=== PATIENT | male | born 1960 | race Caucasian/White ===

== ENCOUNTER 2018-03-26 11:28 | Day surgery (SDC) | payer OTHER, SELFPAY ==
--- NOTE | 2018-03-26 11:27 | RAD_ITS ---
STUDY: X-RAY - ABDOMEN/PELVIS REASON FOR EXAM: Male, 57 years old. Right-sided kidney stone, preop TECHNIQUE: Two AP supine views of the abdomen and pelvis. COMPARISON: None. FINDINGS: Normal visualized lung bases. There is an unremarkable bowel gas pattern. There is no demonstrated free abdominal air. The visualized liver, spleen and kidneys are grossly normal in size and morphology. Ossific density in the region of the right renal shadow measuring 5.2 mm. Tiny 3 mm stone in the lower pole of the left kidney. Normal soft tissue structures. Normal visualized osseous structures. RAD/Abdomen Single View IMPRESSION: As above Electronically Signed: Michael Donis DO at 12:47 EDT Tel , Service support ,
[2018-03-26 12:28] VITALS: BP 130/87; PULSE 71; RESP 12; TEMP 37.1; O2SAT 96; BMI 31.6
[2018-03-26] MEDS: Cefazolin 2 GM in 0.9% Normal Saline 100 ML IV (14:23)
--- NOTE | 2018-03-26 14:27 | DCINST_ITS ---
Discharge Diet: Light diet - advance as tolerated Discharge Activity: Return to Normal Activity Instructions: Shock Wave Lithotripsy Allergies/Adverse Reactions: Allergies penicillin V Allergy (Severe, Verified 03/26/18 12:25) RASH Medications to take at Discharge aspirin 81 mg tablet,delayed release 81 mg PO DAILY 03/23/18 hydrocodone 7.5 mg-acetaminophen 325 mg tablet 1 tab PO Q6H PRN #60 tab 03/23/18 lisinopril 20 mg tablet 20 mg PO DAILY #90 tab 03/23/18 multivitamin,bp-hiai-iamtwkki tablet 1 tab PO DAILY 03/23/18 omega-3 fatty acids 1,000 mg capsule 1,000 mg PO DAILY 03/23/18 promethazine 12.5 mg tablet 12.5 mg PO Q4H PRN #60 tab 03/23/18 tamsulosin 0.4 mg capsule 0.4 mg PO DAILY #30 cap 03/23/18 Primary Care Physician: Maribell Pulido NP-C [Primary Care Provider] - Test Results: Test results from this visit will be discussed in further detail at your follow- up appointment, if applicable. Please Follow Up With: Eddie Gonzalez MD When: in 2 weeks, please call to make an appointment.
--- NOTE | 2018-03-26 15:24 | PCM.OPRPT ---
Report of Operation Date of Procedure: 03/26/18 Pre-Operative Diagnosis: Right proximal ureteral calculi Post-Operative Diagnosis: Same Surgery/Procedure Performed:: Right extracorporeal shockwave lithotripsy Description of Surgical Findings:: 57-year-old male taken back to the operating room for shockwave lithotripsy, after induction of anesthesia, he was placed supine on the table and we localize the stone in the proximal right ureter using triangulation technique in the F2 focal point of the lithotripter machine. We then started shockwave lithotripsy stone then moved up into the kidney we then repositioned the stone in the F2 focal point in the kidney and continued with treatment of the stone at the end of the treatment cycle we delivered 3000 shockwaves at a rate of 90 power up to 7. The stone fragment appeared to break up successfully, no stent was placed patient's anesthetic is currently being reversed plan to see him back in a few weeks with an x-ray. Type of Anesthesia:: General Drains: none - Admit VTE Documentation VTE Present on Admission: No VTE Mechan Device Prophylaxis: SCD's VTE Pharm Prophylaxis ordered?: No Reason prophylaxis not ordered:: Treatment Not Indicated
[2018-03-26 15:41] VITALS: BP 127/80; BP 130/87; PULSE 79; RESP 16; TEMP 36.5; O2SAT 92
[2018-03-26 15:50] VITALS: BP 116/75; BP 130/87; PULSE 71; RESP 16; O2SAT 100
[2018-03-26] MEDS: Ketorolac 15 MG/ML Vial IV (15:54)
[2018-03-26 16:00] VITALS: BP 122/78; BP 130/87; RESP 16; O2SAT 100
[2018-03-26 16:15] VITALS: BP 128/77; BP 130/87; PULSE 70; RESP 16; TEMP 36.8; O2SAT 98
[2018-03-26 16:34] VITALS: BP 130/87
== END 2018-03-26 16:43 | disposition home or self-care (01) ==
LOC: SDC 11:31 → AC 11:34 → SDC 03-29 06:31
PROVIDERS: Family Provider Nurse Practitioner; PCP Nurse Practitioner; Referring Provider Urology; Visit Provider Urology
PROC: (CPT 50590; principal; 2018-03-26 13:20)
DX: N20.1 Calculus of ureter (principal); Z79.899 Other long term (current) drug therapy; Z79.82 Long term (current) use of aspirin; I10 Essential (primary) hypertension
CPT/HCPCS: 00873; 50590; 74018; J7120; J2405

== ENCOUNTER → 2018-04-22 15:44 | Outpatient (CLI) | payer OTHER, SELFPAY ==
--- NOTE | 2018-04-22 15:50 | RAD_ITS ---
STUDY: X-RAY - ABDOMEN/PELVIS REASON FOR EXAM: Male, 57 years old. History of kidney stones. TECHNIQUE: Two AP supine views of the abdomen and pelvis. COMPARISON: None. FINDINGS: Normal visualized lung bases. There is a moderate amount of colonic fecal material. 3 mm calculus in the lower pole calyx of the left kidney. The previously seen 5 mm calcification overlying the transverse processes of the L3 vertebrae on the right side is not seen at this time. Normal soft tissue structures. Normal visualized osseous structures. RAD/Abdomen Single View IMPRESSION: 3 mm calculus in the lower pole calyx of the left kidney. The previously seen calcification overlying the transverse process of the L3 vertebrae on the right side is not seen at this time. Electronically Signed: Kael New MD at 15:37 EDT Tel [phone], Service support ,
== END ==
PROVIDERS: Family Provider Nurse Practitioner; PCP Nurse Practitioner; Referring Provider Urology; Visit Provider Urology
DX: N20.0 Calculus of kidney (principal)
CPT/HCPCS: 74018

== ENCOUNTER → 2019-05-02 13:48 | Outpatient (CLI) | payer OTHER, SELFPAY ==
--- NOTE | 2019-05-02 13:53 | RAD_ITS ---
STUDY: X-RAY - ABDOMEN/PELVIS REASON FOR EXAM: Male, 58 years old. Kidney stones. TECHNIQUE: Single AP view of the abdomen / pelvis. COMPARISON: 04/22/2018. FINDINGS: Normal visualized lung bases. There is an unremarkable bowel gas pattern. There is no demonstrated free abdominal air. Redemonstrated is calcification projecting over the lower pole of the left kidney measuring approximately 2 mm. Otherwise normal visualized liver, spleen and kidneys are grossly normal in size and morphology. Normal soft tissue structures. There are diffuse degenerative changes of the visualized lumbar spine. RAD/Abdomen Single View IMPRESSION: Small stone projecting over the lower pole of the left described above and stable in the interval. Electronically Signed: Mae Preston MD at 1:57 EST , Service support ,
== END ==
PROVIDERS: Family Provider Nurse Practitioner; PCP Nurse Practitioner; Referring Provider Urology; Visit Provider Urology
DX: N20.0 Calculus of kidney (principal)
CPT/HCPCS: 74018

== ENCOUNTER → 2019-09-07 | Outpatient (CLI) | payer OTHER, SELFPAY ==
[2019-09-07 18:49] VITALS: BMI 33.9
[2019-09-07 21:24] LABS: Absolute Lymphocyte Count 3.39 X10^3/uL (0.83-4.51); Absolute Neutrophil Count 3.8 X10^3/uL (2.0-7.7); Basophil# 0.03 X10^3/uL; Basophil% 0.4 % (0-1); Eosinophil# 0.13 X10^3/uL; Eosinophils% 1.6 % (0-5); Hematocrit 44.9 % (40-54); Hemoglobin 15.7 g/dL (13.0-16.5); Lymphocyte # 3.39 X10^3/ul (4.0); Lymphocyte % 42.2 % (19-41); Mean Corpuscular Hgb 30.4 pg (27.0-32.0); Mean Platelet Vol. 9.5 fl (6.2-12.0); Monocyte# 0.64 X10^3/uL; NRBC Flagged by Analyzer 0 % (0-5); Neutrophil % 47.3 % (47-70); Platelet Count 217 K/mm3 (150-450); RBC Distribution Width CV 11.9 % (11.6-14.6); RBC Distribution Width SD 38.5 fl (35.1-43.9); Red Blood Count 5.16 M/mm3 (4.6-6.2)
[2019-09-07 21:35] LABS: AST(SGOT) 34 U/L (15-37); Alanine Aminotransfer ALT/SGPT 43 U/L (16-61); Albumin, Serum 3.9 g/dL (3.2-5.0); Alkaline Phosphatase 80 U/L (45-117); Anion Gap 6 (5-15); BUN 19 mg/dL (7-18); BUN/Creat Ratio 18.8 RATIO (10-20); Calcium,Total 8.8 mg/dL (8.5-10.1); Chloride 104 mmol/L (98-107); Cholesterol 174 mg/dL (200); Creatinine, Serum 1.01 mg/dL (0.70-1.30); EST Glomerular Filtration Rate 81 mL/min (>60); Est Glom Filt Rate - Afr Amer 98 mL/min (>60); Globulin 3.8 g/dL (2.2-4.2); Glucose 94 mg/dL (74-106); High Density Lipoprotein 38 mg/dL; Potassium 4.3 mmol/L (3.5-5.1); Protein, Total 7.7 g/dL (6.4-8.2); Sodium Level 138 mmol/L (136-145); Triglycerides 249 mg/dL; Very Low Density Lipoprotein 50 mg/dL (5-40)
== END | disposition home or self-care (01) ==
PROVIDERS: PCP Nurse Practitioner; Referring Provider Nurse Practitioner; Visit Provider Nurse Practitioner
DX: I10 Essential (primary) hypertension (principal)
CPT/HCPCS: 80053; 80061; 85025